=== PATIENT | male | born 1975 | race Hispanic/Latino ===

== ENCOUNTER 2024-07-21 23:23 | Emergency (ER) | payer BC ==
[~2024-07-21] VITALS: Ht 177.8 cm; Wt 181.4 kg
[~2024-07-21 23:23] MED LIST: GLYB-173 PO; INSU100V12; LEVO-70 PO; LISI40TA9 PO; ROSU20TA98 PO
[2024-07-21 23:48] LABS: BASOPHILS # (AUTO) 0.03 K/uL (0.00-0.20); BASOPHILS % (AUTO) 0.5 % (0.0-5.0); EOSINOPHILS # (AUTO) 0.13 K/uL (0.00-0.70); EOSINOPHILS % (AUTO) 2.2 % (0.0-8.0); HEMATOCRIT 41.2 % (42-54); IMMATURE GRANULOCYTE ABSOLUTE 0.04 K/uL (0-1); LYMPHOCYTES # (AUTO) 1.5 K/uL (1.0-4.8); LYMPHOCYTES % (AUTO) 24.2 % (21.0-51.0); MEAN CORPUSCULAR HEMOGLOBIN 27.5 pg (27.0-33.0); MEAN CORPUSCULAR HGB CONC 33.5 g/dL (32.0-36.0); MEAN CORPUSCULAR VOLUME 82.1 fL (79-99); MONOCYTES # (AUTO) 0.5 K/uL (0.1-1.0); MONOCYTES % (AUTO) 8.3 % (3.0-13.0); NEUTROPHILS # (AUTO) 3.9 K/uL (1.8-7.7); NEUTROPHILS % (AUTO) 64.1 % (40.0-77.0); PLATELET COUNT (AUTO) 200 K/uL (130-400); RED BLOOD CELL COUNT(AUTO) 5.02 MIL/uL (4.50-6.20); RED CELL DISTRIBUTION WIDTH 13.5 % (11.0-15.5)
[2024-07-21 23:52] LABS: APPEARANCE,URINE CLEAR (CLEAR); BILIRUBIN,URINE NEGATIVE (NEGATIVE); COLOR,URINE LIGHT-YELLOW (YELLOW); GLUCOSE, URINE (UA) >=1000 mg/dL (NEGATIVE); KETONES,URINE NEGATIVE (NEGATIVE); LEUKOCYTE ESTERASE ,URINE NEGATIVE Leu/uL (NEGATIVE); NITRATE,URINE NEGATIVE (NEGATIVE); OCCULT BLOOD,URINE NEGATIVE (NEGATIVE); PH,URINE 5.5 (5.0-8.0); PROTEIN,URINE 10 mg/dL (NEGATIVE); UROBILINOGEN,URINE 0.2 mg/dL (0.2-1.0)
[2024-07-21 23:53] LABS: ADD UA MICROSCOPIC YES
[2024-07-22] MEDS: ondanSETRON 4MG INJ IVP STA (00:01)
[2024-07-22] MEDS: LACTATED RINGERS 1000ML 1,000 ML IV STA (00:01)
[2024-07-22] MEDS: FAMOTIDINE 20MG VIAL IV STA (00:01)
[2024-07-22] MEDS: morPHINE 2 MG SYG IVP STA (00:02)
[2024-07-22 00:03] LABS: CREATININE 1.3 mg/dL (0.5-1.3)
[2024-07-22 00:07] LABS: ALBUMIN 3.2 g/dL (3.5-5.0); BILIRUBIN,DIRECT 0.1 mg/dL (0.0-0.3); BILIRUBIN,TOTAL 0.5 mg/dL (0.2-1.0); TOTAL PROTEIN, SERUM 6.8 g/dL (6.0-8.3)
[2024-07-22 00:10] LABS: BACTERIA,URINE None Seen /HPF (None Seen); MUCUS,URINE Rare LPF (None Seen); RBC,URINE 0-1 /HPF (0-1); SQUAMOUS EPITHELIAL CELL,UR Rare /HPF (0-2); WBC,URINE 0-1 /HPF (0-1)
[2024-07-22] MEDS ORDERED: IOHEXOL-350 75 ML VIAL IV ONE (00:29)
[2024-07-22] MEDS: INSULIN humuLIN R 100 UNIT/ML 3ML IV STA (01:07)
[2024-07-22 01:29] VITALS: BP 143/59; PULSE 85; RESP 20; TEMP 98.6; O2SAT 98
[2024-07-22] MEDS ORDERED: FAMO-136 PO (01:33)
[2024-07-22] MEDS ORDERED: ONDA-243 PO (01:33)
== END 2024-07-22 01:39 | disposition home or self-care (01) ==
LOC: EDH 23:23
DX: R10.13 Epigastric pain (principal); K40.90 Unilateral inguinal hernia, without obstruction or gangrene, not specified as recurrent; K43.9 Ventral hernia without obstruction or gangrene; E11.65 Type 2 diabetes mellitus with hyperglycemia; E78.00 Pure hypercholesterolemia, unspecified; I10 Essential (primary) hypertension; Z79.84 Long term (current) use of oral hypoglycemic drugs; Z79.899 Other long term (current) drug therapy; Z88.1 Allergy status to other antibiotic agents; Z88.2 Allergy status to sulfonamides; Z90.5 Acquired absence of kidney
CPT/HCPCS: 99284; 74177; 80076; 84484; 80048; 83690; 85025; 82948; 81001; 36415; 93005; 96374; 96375; J7120; J2405; J1815; J3490; J2270; Q9967

== ENCOUNTER 2024-09-06 14:08 | Emergency (ER) | payer BC ==
[~2024-09-06] VITALS: Ht 177.8 cm; Wt 180.1 kg
[~2024-09-06 14:08] MED LIST changes: +FAMO-136 PO; +ONDA-243 PO
[2024-09-06 14:40] VITALS: TEMP 99.9
[2024-09-06 15:02] LABS: RAPID GROUP A STREP negative (NEGATIVE)
[2024-09-06 15:10] LABS: SARS-CoV-2, RNA, NAAT NEGATIVE SARS CoV-2 (NEGATIVE)
[2024-09-06 15:19] LABS: INFLUENZA TYPE A Negative For Type A (NEGATIVE); INFLUENZA TYPE B Negative For Type B (NEGATIVE)
--- NOTE | 2024-09-06 16:10 | ERN ---
General Chief Complaint: Earache Stated Complaint: EARACHE,THROAT PAIN Time Seen by MD: 14:09 Time Seen by Midlevel: 14:09 Source: patient History of Present Illness Initial Comments Patient is a morbidly obese 49-year-old male with a past medical history of hypertension on 40 mg of lisinopril presenting to the emergency department with a sore throat and difficulty swallowing. He was seen at a local urgent care proximally one week ago and was diagnosed with a left ear infection and started on antibiotics. Patient has been taking amoxicillin with little to no relief. Today he presents with swelling to the left side of his face along with pain in his throat. Denies any fever, chills, or any other symptoms at this time. Allergies: Coded Allergies: sulfamethoxazole (Unverified Allergy, Unknown, 10/27/23) trimethoprim (Unverified Allergy, Unknown, 10/27/23) Home Meds Active Scripts Famotidine (Pepcid) 20 Mg Tablet, 20 MG PO DAILY for 14 Days, #14 TAB Prov:NATACHA PIZARRO DISC INSPECTOR 07/22/24 Ondansetron (Ondansetron Odt) 4 Mg Tab.rapdis, 4 MG PO Q6HPRN PRN for nausea for 3 Days, #18 TAB 0 Refills Prov:NATACHA PIZARRO DISC INSPECTOR 07/22/24 Levofloxacin (Levofloxacin) 500 Mg Tablet, 500 MG PO DAILY for 8 Days, #8 TAB Prov:MARY DUNN 10/31/23 Reported Medications Rosuvastatin Calcium (Rosuvastatin Calcium) 20 Mg Tablet, 1 TAB PO HS 10/28/23 Lisinopril (Lisinopril) 40 Mg Tablet, 1 TAB PO DAILY 10/28/23 Insulin Detemir (Levemir) 100 Unit/Ml Vial, 72 UNIT AM 10/28/23 Glyburide/Metformin HCl (Glyburide-Metformin 5-500 mg) 5 Mg-500 Mg Tablet, 2 TAB PO BID 10/28/23 Past Medical History Past Medical History: Diabetes-Type I, Diabetes-Type II, High Cholesterol, Hypertension, Other Medical History Other: RT KIDNEY MASS, NEPHRECTOMY Past Surgical History: Other Surgical History Other: RT KNEE, NEPHRECTOMY RIGHT ROS Dictation CONSTITUTIONAL: Negative except for HPI HEAD/FACE: Negative except for HPI EENT: Negative except for HPI RESPIRATORY: Negative except for HPI GASTROINTESTINAL/ABDOMINAL: Negative except for HPI GENITOURINARY: Negative except for HPI MUSCULOSKELETAL: Negative except for HPI INTEGUMENTARY: Negative except for HPI NEUROLOGICAL/PSYCH: Negative except for HPI HEMATOLOGIC/LYMPHATIC: Negative except for HPI All Systems Negative, Except as noted above. 13 point review of systems assessed and all negative except for above. Physical Exam Physical Exam Dictation Vital Signs reviewed General Appearance: Alert, oriented x 3, no acute distress, morbidly obese Head and Face: non-traumatic. Eyes: PERRL, pink conjunctivas, eyelid no trauma, anterior chamber with arcus senilis. Ears: Pinnas intact and no signs of trauma or erythema ear canals clear and no discharge TM no erythema Nose: No discharge, no bleeding. Oropharynx: Erythema to the posterior oropharynx, uvula shifted to the right, there is left peritonsillar swelling with exudates suspicious for an abscess pharynx clear,no erythema, tonsils no exudates, no abscesses noted, mucous membrane moist Neck: Supple, non-tender, no thyromegaly, no masses, no JVD, no bruits Breast:Deferred Chest:No tenderness, no crepitus, no paradoxical movement, no retractions Lungs:Clear, well-ventilated, symmetric, no rales, no wheezing, no rhonchi, no stridor, good breath sounds bilaterally Heart: Regular rate, regular rhythm, no murmur, no gallops Vascular: no peripheral edema, Abdomen: Soft, positive bowel sounds, nondistended, no guarding, nontender, no rebound, no masses no hepatomegaly, no splenomegaly, no Warren's sign, no hernias. Rectal: Deferred Genital: Deferred Neurological: Normal speech, motor function intact, sensory function intact Musculoskeletal: Neck nontender, full range of motion, back nontender, full range of motion, Extremities: nontender, full range of motion Skin: Color pink, dry, no turgor, no rash, no lacerations, no abrasions, no contusions. Lymphatic: Deferred Results Laboratory and Microbiology Lab and Micro Result Laboratory Tests Test 09/06/24 14:20 09/06/24 16:40 Influenza Type A Antigen Negative For Type A Influenza Type B Antigen Negative For Type B SARS-CoV-2, RNA, NAAT NEGATIVE SARS CoV-2 Group A Streptococcus Rapid negative (NEGATIVE) White Blood Count 14.0 K/uL (4.8-10.8) H Red Blood Count 4.69 MIL/uL (4.50-6.20) Hemoglobin 13.0 g/dL (14.0-18.0) L Hematocrit 39.5 % (42-54) L Mean Corpuscular Volume 84.2 fL (79-99) Mean Corpuscular Hemoglobin 27.7 pg (27.0-33.0) Mean Corpuscular Hemoglobin Concent 32.9 g/dL (32.0-36.0) Red Cell Distribution Width 13.0 % (11.0-15.5) Platelet Count 246 K/uL (130-400) Mean Platelet Volume 9.6 fL (7.5-10.5) Immature Granulocyte % (Auto) 1.2 % (0-1) H Neutrophils (%) (Auto) 84.4 % (40.0-77.0) H Lymphocytes (%) (Auto) 7.0 % (21.0-51.0) L Monocytes (%) (Auto) 6.7 % (3.0-13.0) Eosinophils (%) (Auto) 0.5 % (0.0-8.0) Basophils (%) (Auto) 0.2 % (0.0-5.0) Neutrophils # (Auto) 11.8 K/uL (1.8-7.7) H Lymphocytes # (Auto) 1.0 K/uL (1.0-4.8) Monocytes # (Auto) 0.9 K/uL (0.1-1.0) Eosinophils # (Auto) 0.07 K/uL (0.00-0.70) Basophils # (Auto) 0.03 K/uL (0.00-0.20) Absolute Immature Granulocyte (auto 0.17 K/uL (0-1) Nucleated Red Blood Cells 0.0 % (0.0-0.19) White Cell Morphology Comment See comments Sodium Level 138 mmol/L (136-145) Potassium Level 4.2 mmol/L (3.5-5.1) Chloride Level 98 mmol/L (101-111) L Carbon Dioxide Level 29 mmol/L (21-32) Blood Urea Nitrogen 15 mg/dL (7-18) Creatinine 1.2 mg/dL (0.5-1.3) Glomerular Filtration Rate Calc 74 mL/min (>90) Random Glucose 196 mg/dL (70-105) H Lactic Acid Level 1.6 mmol/L (0.8-2.5) Total Calcium 9.2 mg/dL (8.5-10.1) Procalcitonin 0.25 ng/mL (0.05-0.5) Labs Reviewed?: Yes MDM MDM: Differential diagnosis: Strep pharyngitis, peritonsillar abscess, retro pharyngeal abscess Rationale: Tests considered and ordered secondary to shared decision making include: Previous outside records reviewed: Old ER visits. Risk of complication and/or morbidity or mortality of patient management: None Medications-Per medication reconciliation Need for hospitalization: Patient does meet criteria for hospitalization. Need for emergency major/minor surgery: No There are no social concerns with this patient. Prescription drug management Prescriptions will include symptomatic care Patient's prior external medical records from other ER visits were reviewed by me as indicated. Prior testing and results from previous visits were reviewed. Prior tests were taken into account with medical decision making and resource utilization, independent historian/historians were used to obtain complete medical history. I independently interpreted the test that were performed, results were reviewed by me and considered findings on radiology if ordered. Medical management and examination interpretation discussions were had by me with other qualified healthcare professionals as indicated for the patient's care. ED Course Orders Procedure Category Date Status Time Influenza Type A & B, LAB 09/06/24 Complete Rapid 14:28 Covid Rna Naat LAB 09/06/24 Complete 14:28 Rapid (Group A Strep) LAB 09/06/24 Complete 14:28 Cbc With Differential LAB 09/06/24 Complete 16:20 Basic Metabolic Panel LAB 09/06/24 Complete 16:20 Lactic Acid LAB 09/06/24 Complete 16:20 Procalcitonin LAB 09/06/24 Complete 16:20 Ct Neck Soft Tiss CT 09/06/24 Resulted W/Contrast 16:20 Dexamethasone 4mg/Ml PHA 09/06/24 Complete 1ml Vial (Dexametha 16:30 Clindamycin Ivpb PHA 09/06/24 Complete 600mg/50ml (Cleocin 16:30 Ketorolac PHA 09/06/24 Complete Tromethamine 15mg/Ml 16:30 Morphine 2mg Syg PHA 09/06/24 Complete (Morphine 2mg Syg) 16:30 Ondansetron 4mg Inj PHA 09/06/24 Complete (Zofran 4mg Inj) 16:30 0.9%Nacl 1000ml (Ns PHA 09/06/24 Complete 1000ml) 17:00 Iohexol (Omnipaque) PHA 09/06/24 Complete 17:45 Amp/Sulbac 3gm+Ns PHA 09/06/24 Complete 100ml (Unasyn 3gm+Ns 1 19:00 Current Medications Medications (Trade) Dose Ordered Sig/Radha Route PRN Reason Start Time Stop Time Status Last Admin Dose Admin Ampicillin Sodium/ Sulbactam Sodium (Unasyn 3gm+NS 100ml) 3 gm ONCE ONCE IV 09/06/24 19:00 09/06/24 19:01 DC 09/06/24 19:26 Clindamycin HCl/ Dextrose 50 ml @ 100 mls/hr Q8H IV 09/06/24 16:30 09/06/24 18:38 DC 09/06/24 16:51 Dexamethasone Sodium Phosphate (dexaMETHasone 4MG/ML 1ML VIAL) 10 mg ONCE ONCE IVP 09/06/24 16:30 09/06/24 16:31 DC 09/06/24 16:52 Iohexol (Omnipaque) 35,000 mg STK-MED ONCE IV 09/06/24 17:45 09/06/24 17:46 DC Ketorolac Tromethamine (toRADol) 15 mg ONCE ONCE IV 09/06/24 16:30 09/06/24 16:31 DC 09/06/24 16:52 Morphine Sulfate (morPHINE 2MG SYG) 2 mg ONCE ONCE IVP 09/06/24 16:30 09/06/24 16:31 DC 09/06/24 16:52 Ondansetron HCl (zoFRAN 4MG INJ) 4 mg ONCE ONCE IVP 09/06/24 16:30 09/06/24 16:31 DC 09/06/24 16:51 Sodium Chloride 1,000 ml @ 0 mls/hr ONCE ONCE IV 09/06/24 17:00 09/06/24 17:01 DC 09/06/24 16:53 Vital Signs Date Time Temp Pulse Resp B/P (MAP) Pulse Ox O2 Delivery O2 Flow Rate FiO2 09/06/24 17:00 100 18 159/96 97 Room Air* 0 21 09/06/24 14:40 99.9 92 18 172/81 99 Room Air* 0 21 09/06/24 14:21 99.9 112 18 189/116 99 [facility] [address] [place] [address] IMAGING REPORT Signed PATIENT: LUIS REN MR#: [id number] : 1975 SEX: M AGE: 49 LOCATION: [facility] ORDER 1630 STATUS: REG ER REPORT#: [id number] SERVICE 1620 REASON: r/o peritonsillar abscess ORDERING PHYSICIAN: VAMSI CARVAJAL PROCEDURE: NKSOFTI W - CT NECK SOFT TISS W/CONTRAST CT NECK SOFT TISS W/CONTRAST HISTORY: Peritonsillar abscess COMPARISON: None TECHNIQUE: Multiple sequential axial images of the soft tissue neck were obtained. Patient was not given contrast through intravenous route. FINDINGS: There is left peritonsillar hypodense structure measuring 3 x 3 cm consistent with peritonsillar abscess with surrounding tonsillitis. Visualized portion of brain parenchyma within the posterior fossa is within normal limits. Parapharyngeal fat planes are preserved bilaterally. Parotid glands and submandibular glands are grossly within normal limits. There is cervical adenopathy with the largest on the left measuring 14 mm. The airway is patent. Visualized portion of the lung apices are unremarkable. IMPRESSION: 1. There is left peritonsillar hypodense structure measuring 3 x 3 cm consistent with peritonsillar abscess with surrounding tonsillitis. CT was performed with one or more following dose reduction techniques: automated exposure control, adjustment of the mA and kv according to patient's size, or use of a iterative reconstruction technique. DICTATED BY: BINDU COLE MD DATE: 09/06/241813 ELECTRONICALLY SIGNED BY: BINDU COLE MD DATE: 09/06/241818 DX & DISP Disposition: Transfer (ER to ER transfer to [facility]) Departure Impression: Primary Impression: Peritonsillar abscess Condition: Stable Referrals: YOON GLASS MD (PCP) Time of Disposition: 16:09 I have reviewed the case, and I agree with, Diagnosis and Plan I performed the substantive portion of the visit. I have reviewed and personally made and approve the management plan that is documented in the note by myself or the LOI. I acknowledge for responsibility for the patient's management plan. VAMSI CARVAJAL Sep 06, 2024 16:10
[2024-09-06] MEDS: ondanSETRON 4MG INJ IVP ONE (16:51)
[2024-09-06] MEDS: CLINDAMYCIN IVPB 600MG/50ML 50 ML IV SCH (16:51)
[2024-09-06] MEDS: morPHINE 2 MG SYG IVP ONE (16:52)
[2024-09-06] MEDS: ketOROlac 15MG/ML VIAL (15MG/ML) IV ONE (16:52)
[2024-09-06] MEDS: dexaMETHasone SOD PHOSPHATE 4 MG/ML 1ML VIAL IVP ONE (16:52)
[2024-09-06] MEDS: 0.9%NACL 1000ML 1,000 ML IV ONE (16:53)
[2024-09-06 17:06] LABS: BASOPHILS # (AUTO) 0.03 K/uL (0.00-0.20); BASOPHILS % (AUTO) 0.2 % (0.0-5.0); EOSINOPHILS # (AUTO) 0.07 K/uL (0.00-0.70); EOSINOPHILS % (AUTO) 0.5 % (0.0-8.0); HEMATOCRIT 39.5 % (42-54); IMMATURE GRANULOCYTE ABSOLUTE 0.17 K/uL (0-1); MEAN CORPUSCULAR HEMOGLOBIN 27.7 pg (27.0-33.0); MEAN CORPUSCULAR HGB CONC 32.9 g/dL (32.0-36.0); MEAN CORPUSCULAR VOLUME 84.2 fL (79-99); MONOCYTES # (AUTO) 0.9 K/uL (0.1-1.0); MONOCYTES % (AUTO) 6.7 % (3.0-13.0); NEUTROPHILS # (AUTO) 11.8 K/uL (1.8-7.7); NEUTROPHILS % (AUTO) 84.4 % (40.0-77.0); PLATELET COUNT (AUTO) 246 K/uL (130-400); RED BLOOD CELL COUNT(AUTO) 4.69 MIL/uL (4.50-6.20)
[2024-09-06 17:30] LABS: CREATININE 1.2 mg/dL (0.5-1.3); POTASSIUM 4.2 mmol/L (3.5-5.1)
[2024-09-06] MEDS ORDERED: IOHEXOL 350 MG/ML 100ML INFUS..BTL IV ONE (17:45)
--- NOTE | 2024-09-06 18:19 | HMCIMG ---
CT NECK SOFT TISS W/CONTRAST HISTORY: Peritonsillar abscess COMPARISON: None TECHNIQUE: Multiple sequential axial images of the soft tissue neck were obtained. Patient was not given contrast through intravenous route. FINDINGS: There is left peritonsillar hypodense structure measuring 3 x 3 cm consistent with peritonsillar abscess with surrounding tonsillitis. Visualized portion of brain parenchyma within the posterior fossa is within normal limits. Parapharyngeal fat planes are preserved bilaterally. Parotid glands and submandibular glands are grossly within normal limits. There is cervical adenopathy with the largest on the left measuring 14 mm. The airway is patent. Visualized portion of the lung apices are unremarkable. IMPRESSION: 1. There is left peritonsillar hypodense structure measuring 3 x 3 cm consistent with peritonsillar abscess with surrounding tonsillitis. CT was performed with one or more following dose reduction techniques: automated exposure control, adjustment of the mA and kv according to patient's size, or use of a iterative reconstruction technique.
[2024-09-06] MEDS: AMP/SULBAC 3GM+NS 100ML IV ONE (19:26)
--- NOTE | 2024-09-06 20:47 | NUR ---
EMS CALLED FOR TRANSPORT TO [facility], ER TO ER TRANSFER
[2024-09-06 21:00] VITALS: BP 157/78; PULSE 97; RESP 20; O2SAT 95
--- NOTE | 2024-09-06 21:01 | NUR ---
REPORT GIVEN TO SALLIE ALAS FROM [facility]. CALLED [facility] TO REQUEST TRANSFER
--- NOTE | 2024-09-06 21:41 | NUR ---
[facility] ARRIVED TO TRANSFER PATIENT TO [facility] ER
== END 2024-09-06 21:41 | disposition short-term general hospital (02) ==
LOC: EDH 14:08
DX: J36 Peritonsillar abscess (principal); E11.9 Type 2 diabetes mellitus without complications; E66.01 Morbid (severe) obesity due to excess calories; E78.00 Pure hypercholesterolemia, unspecified; I10 Essential (primary) hypertension; Z79.84 Long term (current) use of oral hypoglycemic drugs; Z79.899 Other long term (current) drug therapy; Z88.1 Allergy status to other antibiotic agents; Z88.2 Allergy status to sulfonamides; Z90.5 Acquired absence of kidney; Z20.822 Contact with and (suspected) exposure to COVID-19
CPT/HCPCS: 99285; 96365; 96375; 70491; 96366; 87635; 80048; 85025; 87880; 87804 ×2; 83605; 36415; 96368; 84145; J1100; J2270; J2405; J1885; J3490; Q9967; J0295

== ENCOUNTER 2025-03-04 13:24 | Emergency (ER) | payer BC ==
[~2025-03-04] VITALS: Ht 177.8 cm; Wt 196.0 kg
[2025-03-04 14:59] LABS: APPEARANCE,URINE CLEAR (CLEAR); BILIRUBIN,URINE NEGATIVE (NEGATIVE); COLOR,URINE YELLOW (YELLOW); GLUCOSE, URINE (UA) 30 mg/dL (NEGATIVE); KETONES,URINE NEGATIVE (NEGATIVE); LEUKOCYTE ESTERASE ,URINE 75 Leu/uL (NEGATIVE); NITRATE,URINE NEGATIVE (NEGATIVE); OCCULT BLOOD,URINE SMALL (NEGATIVE); PROTEIN,URINE 200 mg/dL (NEGATIVE); UROBILINOGEN,URINE 0.2 mg/dL (0.2-1.0)
[2025-03-04 15:01] LABS: BASOPHILS # (AUTO) 0.02 K/uL (0.00-0.20); BASOPHILS % (AUTO) 0.2 % (0.0-5.0); EOSINOPHILS # (AUTO) 0.02 K/uL (0.00-0.70); EOSINOPHILS % (AUTO) 0.2 % (0.0-8.0); HEMATOCRIT 37.7 % (42-54); IMMATURE GRANULOCYTE ABSOLUTE 0.06 K/uL (0-1); LYMPHOCYTES % (AUTO) 7.8 % (21.0-51.0); MEAN CORPUSCULAR HEMOGLOBIN 28.1 pg (27.0-33.0); MEAN CORPUSCULAR HGB CONC 32.9 g/dL (32.0-36.0); MEAN CORPUSCULAR VOLUME 85.3 fL (79-99); MONOCYTES # (AUTO) 0.8 K/uL (0.1-1.0); MONOCYTES % (AUTO) 6.6 % (3.0-13.0); NEUTROPHILS # (AUTO) 10.7 K/uL (1.8-7.7); NEUTROPHILS % (AUTO) 84.7 % (40.0-77.0); PLATELET COUNT (AUTO) 186 K/uL (130-400); RED BLOOD CELL COUNT(AUTO) 4.42 MIL/uL (4.50-6.20); RED CELL DISTRIBUTION WIDTH 13.6 % (11.0-15.5); WHITE BLOOD COUNT (AUTO) 12.6 K/uL (4.8-10.8)
[2025-03-04 15:05] LABS: BACTERIA,URINE RARE /HPF (None Seen); MUCUS,URINE RARE LPF (None Seen); SQUAMOUS EPITHELIAL CELL,UR RARE /HPF (0-2); WBC,URINE 26-50 /HPF (0-1)
[2025-03-04 15:10] LABS: CREATININE 1.2 mg/dL (0.5-1.3); POTASSIUM 4.4 mmol/L (3.5-5.1)
[2025-03-04] MEDS ORDERED: CEPH500T PO (15:58)
--- NOTE | 2025-03-04 15:59 | ERN ---
General Chief Complaint: Painful Urination Stated Complaint: PAIN IN URINATION/BODY WEAKNESS Time Seen by MD: 13:37 Time Seen by Midlevel: 13:37 Source: patient History of Present Illness Initial Comments 49-year-old male who presents to the emergency department due to dysuria. Patient reports frequency, body aches, headache but denies fever, nausea, vomi ting or further associated symptoms. Patient has a history of right nephrectomy due to renal carcinoma. PMHx DM, HTN, hypercholesterolemia Allergies: Coded Allergies: sulfamethoxazole (Unverified Allergy, Unknown, 10/27/23) trimethoprim (Unverified Allergy, Unknown, 10/27/23) Home Meds Active Scripts Cephalexin (Cephalexin) 500 Mg Tablet, 1 TAB PO BID for 10 Days, #20 TAB 0 Refills Prov:KAREN JIN 03/04/25 Famotidine (Pepcid) 20 Mg Tablet, 20 MG PO DAILY for 14 Days, #14 TAB Prov:NATACHA PIZARRO DAIRY MACHINE OPERATOR FARMWORKER 07/22/24 Ondansetron (Ondansetron Odt) 4 Mg Tab.rapdis, 4 MG PO Q6HPRN PRN for nausea for 3 Days, #18 TAB 0 Refills Prov:NATACHA PIZARRO DAIRY MACHINE OPERATOR FARMWORKER 07/22/24 Levofloxacin (Levofloxacin) 500 Mg Tablet, 500 MG PO DAILY for 8 Days, #8 TAB Prov:MARY DUNN 10/31/23 Reported Medications Rosuvastatin Calcium (Rosuvastatin Calcium) 20 Mg Tablet, 1 TAB PO HS 10/28/23 Lisinopril (Lisinopril) 40 Mg Tablet, 1 TAB PO DAILY 10/28/23 Insulin Detemir (Levemir) 100 Unit/Ml Vial, 72 UNIT AM 10/28/23 Glyburide/Metformin HCl (Glyburide-Metformin 5-500 mg) 5 Mg-500 Mg Tablet, 2 TAB PO BID 10/28/23 Past Medical History Past Medical History: Diabetes-Type I, Diabetes-Type II, High Cholesterol, Hypertension, UTI, Other Medical History Other: RT KIDNEY MASS, NEPHRECTOMY Past Surgical History: Other Surgical History Other: RT KNEE, NEPHRECTOMY RIGHT ROS Dictation Constitutional: Positive for body aches Negative for fever,chills, and weight loss Eyes: Negative for injury, pain,redness, and discharge ENT: Negative for injury,pain or swelling Cardiovascular: Negative for chest pain, palpitations, and edema Respiratory: Negative for shortness of breath, cough, and wheezing, Abdomen/GI: Negative for abdominal pain, nausea, vomiting, diarrhea, and constipation Back: Negative for injury and pain : Positive for painful urination, frequency Negative for bleeding or discharge MS/Extremity: Negative for injury and deformity Skin: Negative for rash, and discoloration Neuro: Positive for headache Negative for weakness, numbness, tingling, and seizure Psych: Negative for suicide ideation, homicidal ideation, and hallucinations Physical Exam Physical Exam Dictation General: awake, alert, no acute distress Head/Face: Normocephalic, atraumatic Eyes: PERRL, EOMI, normal conjunctiva ENT: oral cavity clear, oral mucosa moist Neck: Supple, normal range of motion Cardiovascular: RRR, normal S1/S2 Respiratory: CTAB, no respiratory distress, no rales or wheezes Abdomen: Soft, non-tender, non-distended, normal bowel sounds, no guarding or rebound. Back: No CVA tenderness. Skin: Warm, dry, normal turgor, no rash MS/Extremity: Pulses equal, no cyanosis, neurovascular intact, FROM Neuro: COAx4, GCS 15, strength 5/5, CN 2-12 intact, normal cerebellar exam, normal gait Psych: Normal behavior, mood, and affect normal Results Laboratory and Microbiology Lab and Micro Result Laboratory Tests Test 03/04/25 14:35 03/04/25 14:53 Urine Color YELLOW (YELLOW) Urine Appearance CLEAR (CLEAR) Urine pH 6.0 (5.0-8.0) Urine Specific [place] 1.021 (1.001-1.031) Urine Protein 200 mg/dL (NEGATIVE) H Urine Glucose (UA) 30 mg/dL (NEGATIVE) H Urine Ketones NEGATIVE mg/dL (NEGATIVE) Urine Occult Blood SMALL (NEGATIVE) H Urine Nitrate NEGATIVE (NEGATIVE) Urine Bilirubin NEGATIVE mg/dL (NEGATIVE) Urine Urobilinogen 0.2 mg/dL (0.2-1.0) Urine Leukocyte Esterase 75 [place]/uL (NEGATIVE) H Urine RBC 2-5 /HPF (0-1) H Urine WBC 26-50 /HPF (0-1) H Urine Squamous Epithelial Cells RARE /HPF (0-2) Urine Bacteria RARE /HPF (None Seen) White Blood Count 12.6 K/uL (4.8-10.8) H Red Blood Count 4.42 MIL/uL (4.50-6.20) L Hemoglobin 12.4 g/dL (14.0-18.0) L Hematocrit 37.7 % (42-54) L Mean Corpuscular Volume 85.3 fL (79-99) Mean Corpuscular Hemoglobin 28.1 pg (27.0-33.0) Mean Corpuscular Hemoglobin Concent 32.9 g/dL (32.0-36.0) Red Cell Distribution Width 13.6 % (11.0-15.5) Platelet Count 186 K/uL (130-400) Mean Platelet Volume 10.0 fL (7.5-10.5) Immature Granulocyte % (Auto) 0.5 % (0-1) Neutrophils (%) (Auto) 84.7 % (40.0-77.0) H Lymphocytes (%) (Auto) 7.8 % (21.0-51.0) L Monocytes (%) (Auto) 6.6 % (3.0-13.0) Eosinophils (%) (Auto) 0.2 % (0.0-8.0) Basophils (%) (Auto) 0.2 % (0.0-5.0) Neutrophils # (Auto) 10.7 K/uL (1.8-7.7) H Lymphocytes # (Auto) 1.0 K/uL (1.0-4.8) Monocytes # (Auto) 0.8 K/uL (0.1-1.0) Eosinophils # (Auto) 0.02 K/uL (0.00-0.70) Basophils # (Auto) 0.02 K/uL (0.00-0.20) Absolute Immature Granulocyte (auto 0.06 K/uL (0-1) Nucleated Red Blood Cells 0.0 % (0.0-0.19) White Cell Morphology Comment See comments Sodium Level 138 mmol/L (136-145) Potassium Level 4.4 mmol/L (3.5-5.1) Chloride Level 101 mmol/L (101-111) Carbon Dioxide Level 30 mmol/L (21-32) Blood Urea Nitrogen 21 mg/dL (7-18) H Creatinine 1.2 mg/dL (0.5-1.3) Glomerular Filtration Rate Calc 74 mL/min (>90) Random Glucose 168 mg/dL (70-105) H Total Calcium 8.7 mg/dL (8.5-10.1) Labs Reviewed?: Yes MDM MDM: Differential diagnosis: UTI, pyelonephritis Rationale: 49-year-old male who presents to the emergency department due to dysuria. Patient reports frequency, body aches, headache but denies fever, nausea, vomiting or further associated symptoms. Patient has a history of right nephrectomy due to renal carcinoma. PMHx DM, HTN, hypercholesterolemia Vitals stable during the ED course. Per physical examination patient is in no acute distress, abdomen is soft nontender, no CVA tenderness. Labs obtained show mild leukocytosis of 12.6, BUN 21 creatinine 1.2. Compared with previous labs that has been obtained creatinine remains the same. UA shows UTI 75 leukocytes, 26-50 WBCs. Patient was administered Rocephin and IV fluids in the ED. He was educated on findings, and diagnosis. Due to patient's previous history of right nephrectomy admission was discussed with patient and . Patient states he would prefer and feels comfortable going home on antibiotics. Antibiotics prescribed for outpatient treatment. Advised to follow up with PCP. Return to the emergency department if any worsening symptoms. Patient verbalized understanding. Patient is stable for discharge. There are no social concerns with this patient. I independently interpreted the test that were performed, results were reviewed by me and considered findings on radiology if ordered. Medical management and examination interpretation discussions were had by me with other qualified healthcare professionals as indicated for the patient's care. ED Course Orders Procedure Category Date Status Time Cbc With Differential LAB 03/04/25 Complete 14:17 Basic Metabolic Panel LAB 03/04/25 Complete 14:17 Urinalysis LAB 03/04/25 Complete W/Microscopic 14:17 Culture Urine KIRK 03/04/25 Complete 15:02 Ceftriaxone 1g Vial PHA 03/04/25 Complete (Rocephine 1g Inj) 16:00 0.9%Nacl 1000ml (Ns PHA 03/04/25 Complete 1000ml) 16:00 Current Medications Medications (Trade) Dose Ordered Sig/Radha Route PRN Reason Start Time Stop Time Status Last Admin Dose Admin Ceftriaxone Sodium (ROCEphine 1G INJ) 1 gm ONCE ONCE IVPB 03/04/25 16:00 03/04/25 16:01 DC 03/04/25 16:26 Sodium Chloride 1,000 ml @ 0 mls/hr ONCE ONCE IV 03/04/25 16:00 03/04/25 16:01 DC 03/04/25 16:26 Vital Signs Date Time Temp Pulse Resp B/P (MAP) Pulse Ox O2 Delivery O2 Flow Rate FiO2 03/04/25 17:51 98.1 92 16 138/74 97 Room Air* 0 21 03/04/25 14:17 98.1 109 16 143/84 97 Room Air* 0 21 03/04/25 14:05 98.1 109 16 143/84 97 Room Air 0 DX & DISP Disposition: Discharge Departure Impression: Primary Impression: UTI (urinary tract infection) Condition: Stable Scripts Cephalexin (Cephalexin) 500 Mg Tablet 1 TAB PO BID for 10 Days, #20 TAB 0 Refills Prov: KAREN JIN 03/04/25 Additional Instructions: Discharge home. Rest. Follow up with primary care DrStone in 24 hours. Return to the ER for any acute changes or worsening symptoms. If any medications were prescribed take as directed. Okay to continue home medications unless otherwise discussed during your visit in the emergency room today. Patient was also advised to follow-up with primary care physician in 1 to 2 days for continued monitoring. Referrals: YOON GLASS MD (PCP) I performed the substantive portion of the visit. I have reviewed and personally made and approve the management plan that is documented in the notes by myself or the LOI. I acknowledge full responsibility for the patient's management plan. KAREN JIN March 04, 2025 15:59
[2025-03-04] MEDS: cefTRIAXone 1G VIAL IVPB ONE (16:26)
[2025-03-04] MEDS: 0.9%NACL 1000ML 1,000 ML IV ONE (16:26)
--- NOTE | 2025-03-04 17:47 | NUR ---
WAITING FOR FLUIDS TO FINISH BEFORE D/C, AWARE
[2025-03-04 17:51] VITALS: BP 138/74; PULSE 92; RESP 16; TEMP 98.1; O2SAT 97
== END 2025-03-04 17:52 | disposition home or self-care (01) ==
LOC: EDH 13:24
DX: N39.0 Urinary tract infection, site not specified (principal); E11.9 Type 2 diabetes mellitus without complications; E78.00 Pure hypercholesterolemia, unspecified; I10 Essential (primary) hypertension; Z79.84 Long term (current) use of oral hypoglycemic drugs; Z79.899 Other long term (current) drug therapy; Z87.440 Personal history of urinary (tract) infections; Z88.1 Allergy status to other antibiotic agents; Z88.2 Allergy status to sulfonamides; Z90.5 Acquired absence of kidney
CPT/HCPCS: 99284; 96374; 80048; 85025; 87086 ×2; 87186; 81001; 36415; J7030; J0696